=== PATIENT | female | born 1990 | race Asian ===

== ENCOUNTER 2018-06-05 20:11 | Emergency (ER) | payer BC, OTHER ==
[~2018-06-05] VITALS: Ht 154.9 cm; Wt 48.1 kg
[2018-06-05 20:12] VITALS: BP 114/63
== END 2018-06-05 20:48 | disposition home or self-care (01) ==
LOC: ER 20:17
DX: S09.8XXA Other specified injuries of head, initial encounter (principal); Z60.2 Problems related to living alone; Y04.8XXA Assault by other bodily force, initial encounter; Y93.89 Activity, other specified; Y92.89 Other specified places as the place of occurrence of the external cause; Y99.8 Other external cause status
CPT/HCPCS: Z7502

== ENCOUNTER 2019-05-07 14:09 | Emergency (ER) | payer BC, OTHER ==
[~2019-05-07] VITALS: Ht 154.9 cm; Wt 51.3 kg
--- NOTE | 2019-05-07 14:12 | NUR ---
[id number], came to er c/o left eye exposure to blood while she was removing the patient's iv. rr is even and unlabored with nad noted. skin is warm and dry. Awaiting md for eval.
--- NOTE | 2019-05-07 14:15 | NUR ---
REAGAN Joaquin at BS for saundra.
--- NOTE | 2019-05-07 14:20 | NUR ---
Left eye irrigation started, patient tolerated the procedure.
[2019-05-07 14:51] LABS: BASOPHILS # (AUTO) 0.1 /CMM (0.0-0.2); BASOPHILS % (AUTO) 0.6 % (0.0-2.0); EOSINOPHILS % (AUTO) 1.2 % (0.0-6.0); HEMATOCRIT 42 % (33-45); HEMOGLOBIN 14.3 g/dL (11.5-14.8); LYMPHOCYTES # (AUTO) 2.9 /CMM (0.8-4.8); LYMPHOCYTES % (AUTO) 29.9 % (20.0-44.0); MEAN CORPUSCULAR HGB CONC 34 g/dl (31.0-36.0); MEAN CORPUSCULAR VOLUME 89 fL (82-100); MONOCYTES # (AUTO) 0.7 /CMM (0.1-1.30); MONOCYTES % (AUTO) 6.9 % (2.0-12.0); NEUTROPHILS # (AUTO) 5.9 /CMM (1.8-8.9); NEUTROPHILS % (AUTO) 61.4 % (43.0-81.0); PLATELET COUNT (AUTO) 360 /CMM (150-450); RED BLOOD CELL COUNT(AUTO) 4.67 MIL/uL (4.0-5.2); WHITE BLOOD COUNT (AUTO) 9.6 K/uL (4.3-11.0)
[2019-05-07] MEDS ORDERED: IV NS 0.9% 1,000 ML BAG IV ONE (15:00)
[2019-05-07 15:03] LABS: ALBUMIN 4.7 g/dL (3.4-5.0); CALCIUM, SERUM 9.5 mg/dL (8.5-10.1); CREATININE 0.5 mg/dL (0.6-1.3); POTASSIUM 3.8 mmol/L (3.5-5.1); TOTAL PROTEIN, SERUM 8.6 g/dL (6.4-8.2)
--- NOTE | 2019-05-07 15:10 | NUR ---
REAGAN Joaquin at BS for re-eval.
--- NOTE | 2019-05-07 15:19 | NUR ---
Patient discharged to home in stable condition. Written and verbal after care instructions given. Patient verbalizes understanding of instruction.
[2019-05-07 15:20] VITALS: BP 120/70
[2019-05-08 08:12] LABS: HIV SCRN 4G wRFX Non Reactive (Non Reactive)
== END 2019-05-07 15:22 | disposition home or self-care (01) ==
LOC: ER 14:09
DX: Z77.21 Contact with and (suspected) exposure to potentially hazardous body fluids (principal); Z60.2 Problems related to living alone
CPT/HCPCS: 36415; 80053-TC; 85025-TC; 86706; 86803

== ENCOUNTER 2019-09-19 12:35 | Emergency (ER) | payer BC, OTHER ==
[~2019-09-19] VITALS: Ht 154.9 cm; Wt 51.3 kg
[2019-09-19 13:03] LABS: BASOPHILS # (AUTO) 0.1 /CMM (0.0-0.2); BASOPHILS % (AUTO) 0.8 % (0.0-2.0); EOSINOPHILS % (AUTO) 1.5 % (0.0-6.0); HEMATOCRIT 41 % (33-45); HEMOGLOBIN 13.8 g/dL (11.5-14.8); LYMPHOCYTES # (AUTO) 2.5 /CMM (0.8-4.8); LYMPHOCYTES % (AUTO) 37.7 % (20.0-44.0); MEAN CORPUSCULAR HGB CONC 34 g/dl (31.0-36.0); MEAN CORPUSCULAR VOLUME 90 fL (82-100); MONOCYTES # (AUTO) 0.5 /CMM (0.1-1.30); MONOCYTES % (AUTO) 8.3 % (2.0-12.0); NEUTROPHILS # (AUTO) 3.4 /CMM (1.8-8.9); NEUTROPHILS % (AUTO) 51.7 % (43.0-81.0); PLATELET COUNT (AUTO) 338 /CMM (150-450); RED BLOOD CELL COUNT(AUTO) 4.54 MIL/uL (4.0-5.2); WHITE BLOOD COUNT (AUTO) 6.6 K/uL (4.3-11.0)
--- NOTE | 2019-09-19 13:04 | NUR ---
BOX [facility] AT BEDSIDE FOR US
[2019-09-19 13:06] LABS: APPEARANCE,URINE Clear (CLEAR); BILIRUBIN,URINE Negative (NEGATIVE); BLOOD, URINE Negative Ery/uL (NEGATIVE); COLOR,URINE Yellow (YELLOW); KETONES,URINE Negative (NEGATIVE); LEUKOCYTE ESTERASE ,URINE Negative (NEGATIVE); NITRITE, URINE Negative (NEGATIVE); PH,URINE 5.5 (5.0-8.0); PROTEIN,URINE Negative (NEGATIVE); UGLUCOSE Negative (NEGATIVE); UROBILINOGEN,URINE 0.2 EU/dL (0.2)
[2019-09-19 13:18] LABS: ALBUMIN 4.3 g/dL (3.4-5.0); BILIRUBIN,DIRECT 0.1 mg/dL (0.0-0.2); BILIRUBIN,TOTAL 0.6 mg/dL (0.2-1.0); CALCIUM, SERUM 9.8 mg/dL (8.5-10.1); CREATININE 0.7 mg/dL (0.6-1.3); POTASSIUM 3.6 mmol/L (3.5-5.1); TOTAL PROTEIN, SERUM 7.7 g/dL (6.4-8.2)
[2019-09-19] MEDS ORDERED: KETOROLAC TROMETHAMINE INJ 30 MG/ML VIAL IV ONE (13:30)
[2019-09-19 13:50] VITALS: BP 124/75
--- NOTE | 2019-09-19 13:50 | NUR ---
Pt states "Pain better now." Patient discharged to home in stable condition. Written and verbal after care instructions given. Patient verbalizes understanding of instruction.
== END 2019-09-19 13:52 | disposition home or self-care (01) ==
LOC: ER 12:38
DX: R10.2 Pelvic and perineal pain (principal); Z60.2 Problems related to living alone
CPT/HCPCS: 36415; 76856-TC; 80048-TC; 80076-TC; 81000-TC; 83690-TC; 84703-TC; 85025-TC